=== PATIENT | female | born 1975 ===

== ENCOUNTER 2020-12-12 13:22 | Inpatient (IN) | payer BC ==
[2020-12-12 14:30] LABS: #Lymphocytes 0.8 thou/uL (1.20-3.40); #Monocytes 0.3 thou/uL (0.11-0.59); #Neutrophils 8.3 thou/uL (1.40-6.50); %Basophils 0.2 % (0.0-1.0); %Eosinophils 0.1 % (0.0-10.0); %Lymphocytes 8.4 % (21.0-51.0); %Monocytes 2.9 % (0.0-10.0); %Neutrophils 88.5 % (42.0-75.0); Hemoglobin 13.3 g/dL (12.0-16.0); Mean Corpuscular HGB CONC 33.3 g/dL (32.0-36.0); Mean Corpuscular Hemoglobin 29.8 pg (27.0-31.0); Mean Corpuscular Volume 89.4 fL (78.0-98.0); Mean Platelet Volume 6.7 fL (7.4-10.4); Platelet Count 383 thou/uL (130-400); RBC Distribution Width 12.1 % (11.5-14.5); Red Blood Cell (RBC) Count 4.48 mill/uL (4.20-5.40); White Blood Cell (WBC) Count 9.4 thou/uL (4.8-10.8)
[2020-12-12 15:01] LABS: ALT (SGPT) 49 U/L (8-55); AST (SGOT) 69 U/L (5-34); Albumin 3.6 g/dL (3.5-5.0); Alkaline Phosphatase 114 U/L (40-110); Anion Gap 14 mmol/L (10-20); BUN (Urea Nitrogen) 13 mg/dL (7.0-18.7); Bilirubin, Total 0.8 mg/dL (0.2-1.2); CK (CPK) 122 U/L (29-168); Calc. Creatinine Clearance 0 mL/min (70-130); Calcium 9.1 mg/dL (7.8-10.44); Carbon Dioxide 26 mmol/L (22-29); Chloride 104 mmol/L (98-107); Globulin 3.7 g/dL (2.4-3.5); Glucose 94 mg/dL (70-105); Potassium 3.1 mmol/L (3.5-5.1); Protein, Total 7.3 g/dL (6.0-8.3); Sodium 141 mmol/L (136-145)
[2020-12-12 15:42] LABS: Magnesium 1.8 mg/dL (1.6-2.6)
[2020-12-12 15:48] LABS: Phosphorus 1.8 mg/dL (2.3-4.7)
[2020-12-12 15:58] LABS: INR-International Normal Ratio 1.1; PTT 28.7 sec (22.9-36.1); Prothrombin Time 13.7 sec (12.0-14.7)
[2020-12-12 15:59] LABS: D-Dimer Test 1.64 *mcg/mL (0.27-0.43)
[2020-12-12] MEDS ORDERED: Potassium Phosphate 15 MMOL in Sodium Chloride 0.9% 250 ML 250 ML IVPB SCH (16:00)
[2020-12-12] MEDS ORDERED: Ondansetron ODT 4 MG TAB PO PRN (16:21)
[2020-12-12] MEDS ORDERED: Acetaminophen 650 MG Suppository PR PRN (16:21)
[2020-12-12] MEDS ORDERED: Ondansetron PF 4 MG/2 ML Vial IVP PRN (16:21)
[2020-12-12 18:15] VITALS: BMI 32.5
[2020-12-12] MEDS ORDERED: Enoxaparin Sodium 40 MG/0.4 ML SYRINGE SC SCH (18:45)
[2020-12-12] MEDS: PHOS-NAK 1 PKT PACK PO SCH ×2 (19:00→22:33)
[2020-12-12] MEDS: Guaifenesin DM 100-10/5 ML UDCUP PO PRN (19:01)
[2020-12-12] MEDS ORDERED: REMDESIVIR 200 MG in Sodium Chloride 0.9% 250 ML 210 ML IV SCH (21:00)
[2020-12-12] MEDS: Acetaminophen 325 MG TAB PO PRN (22:32)
[2020-12-12 23:09] LABS: Anion Gap 12 mmol/L (10-20); BUN (Urea Nitrogen) 9 mg/dL (7.0-18.7); Calc. Creatinine Clearance 133 mL/min (70-130); Calcium 8.3 mg/dL (7.8-10.44); Carbon Dioxide 27 mmol/L (22-29); Chloride 107 mmol/L (98-107); Glucose 107 mg/dL (70-105); Potassium 3.5 mmol/L (3.5-5.1); Sodium 142 mmol/L (136-145)
[2020-12-13] MEDS: Guaifenesin DM 100-10/5 ML UDCUP PO PRN ×2 (00:36→06:13)
[2020-12-13] MEDS: Acetaminophen 325 MG TAB PO PRN ×2 (06:15→20:59)
[2020-12-13 06:46] LABS: #Lymphocytes 0.9 thou/uL (1.20-3.40); #Monocytes 0.4 thou/uL (0.11-0.59); #Neutrophils 4.4 thou/uL (1.40-6.50); %Basophils 0.5 % (0.0-1.0); %Eosinophils 0.1 % (0.0-10.0); %Lymphocytes 15.8 % (21.0-51.0); %Monocytes 6.5 % (0.0-10.0); %Neutrophils 77.2 % (42.0-75.0); Hemoglobin 11.9 g/dL (12.0-16.0); Mean Corpuscular HGB CONC 33.6 g/dL (32.0-36.0); Mean Corpuscular Hemoglobin 30.5 pg (27.0-31.0); Mean Corpuscular Volume 90.8 fL (78.0-98.0); Mean Platelet Volume 6.7 fL (7.4-10.4); Platelet Count 354 thou/uL (130-400); RBC Distribution Width 12.2 % (11.5-14.5); Red Blood Cell (RBC) Count 3.91 mill/uL (4.20-5.40); White Blood Cell (WBC) Count 5.7 thou/uL (4.8-10.8)
[2020-12-13 07:10] LABS: Anion Gap 11 mmol/L (10-20); BUN (Urea Nitrogen) 7 mg/dL (7.0-18.7); Calc. Creatinine Clearance 138 mL/min (70-130); Calcium 8.2 mg/dL (7.8-10.44); Carbon Dioxide 28 mmol/L (22-29); Chloride 108 mmol/L (98-107); Glucose 89 mg/dL (70-105); Potassium 3.3 mmol/L (3.5-5.1); Sodium 144 mmol/L (136-145)
[2020-12-13] MEDS: Ascorbic Acid 500 mg Chewable Tablet PO SCH (08:08)
[2020-12-13] MEDS: Dexamethasone 4 MG TAB PO SCH (08:08)
[2020-12-13] MEDS: Zinc Sulfate 220 MG CAP PO SCH (08:09)
[2020-12-13] MEDS: Enoxaparin Sodium 40 MG/0.4 ML SYRINGE SC SCH (08:09)
[2020-12-13] MEDS ORDERED: hydrALAZINE 25 MG TAB PO PRN (09:24)
[2020-12-13] MEDS ORDERED: Potassium Chloride 20 MEQ TAB PO SCH (09:30)
[2020-12-13 10:23] LABS: Phosphorus 2.8 mg/dL (2.3-4.7)
[2020-12-13] MEDS ORDERED: clonazePAM 1 MG TAB PO PRN (20:27)
[2020-12-13] MEDS: REMDESIVIR 100 MG in Sodium Chloride 0.9% 250 ML 230 ML IV SCH (20:47)
[2020-12-14] MEDS: Levothyroxine Sodium 100 MCG TAB PO SCH (06:03)
[2020-12-14 06:34] LABS: #Lymphocytes 0.8 thou/uL (1.20-3.40); #Monocytes 0.5 thou/uL (0.11-0.59); #Neutrophils 4.2 thou/uL (1.40-6.50); %Basophils 0.3 % (0.0-1.0); %Eosinophils 0.2 % (0.0-10.0); %Monocytes 9.1 % (0.0-10.0); %Neutrophils 75.3 % (42.0-75.0); Mean Corpuscular Hemoglobin 29.8 pg (27.0-31.0); Mean Corpuscular Volume 90.4 fL (78.0-98.0); Mean Platelet Volume 6.6 fL (7.4-10.4); Platelet Count 423 thou/uL (130-400); Red Blood Cell (RBC) Count 4.35 mill/uL (4.20-5.40); White Blood Cell (WBC) Count 5.6 thou/uL (4.8-10.8)
[2020-12-14 06:53] LABS: ALT (SGPT) 121 U/L (8-55); AST (SGOT) 99 U/L (5-34); Albumin 3.4 g/dL (3.5-5.0); Alkaline Phosphatase 212 U/L (40-110); Anion Gap 13 mmol/L (10-20); BUN (Urea Nitrogen) 9 mg/dL (7.0-18.7); Bilirubin, Total 0.6 mg/dL (0.2-1.2); CRP (Inflammatory) 6.98 mg/dL (= or < 0.5); Calc. Creatinine Clearance 133 mL/min (70-130); Carbon Dioxide 27 mmol/L (22-29); Chloride 105 mmol/L (98-107); Globulin 3.1 g/dL (2.4-3.5); Glucose 130 mg/dL (70-105); Potassium 3.5 mmol/L (3.5-5.1); Protein, Total 6.5 g/dL (6.0-8.3); Sodium 141 mmol/L (136-145)
[2020-12-14] MEDS: Enoxaparin Sodium 40 MG/0.4 ML SYRINGE SC SCH (08:16)
[2020-12-14] MEDS: Dexamethasone 4 MG TAB PO SCH (08:16)
[2020-12-14] MEDS: Ascorbic Acid 500 mg Chewable Tablet PO SCH (08:19)
[2020-12-14] MEDS: Zinc Sulfate 220 MG CAP PO SCH (08:19)
[2020-12-14] MEDS: Escitalopram Oxalate 20 mg Tablet PO SCH (08:19)
[2020-12-14] MEDS ORDERED: Rosuvastatin 5 MG TAB PO SCH (09:00)
[2020-12-14] MEDS: REMDESIVIR 100 MG in Sodium Chloride 0.9% 250 ML 230 ML IV SCH (20:01)
[2020-12-15] MEDS: Melatonin 3 MG TAB PO PRN ×2 (00:24→20:18)
[2020-12-15] MEDS: Levothyroxine Sodium 100 MCG TAB PO SCH (05:43)
[2020-12-15 06:46] LABS: ALT (SGPT) 93 U/L (8-55); AST (SGOT) 53 U/L (5-34); Albumin 3.3 g/dL (3.5-5.0); Alkaline Phosphatase 201 U/L (40-110); Anion Gap 11 mmol/L (10-20); BUN (Urea Nitrogen) 11 mg/dL (7.0-18.7); Bilirubin, Total 0.6 mg/dL (0.2-1.2); CRP (Inflammatory) 2.98 mg/dL (= or < 0.5); Calc. Creatinine Clearance 131 mL/min (70-130); Calcium 8.8 mg/dL (7.8-10.44); Carbon Dioxide 26 mmol/L (22-29); Chloride 107 mmol/L (98-107); Glucose 123 mg/dL (70-105); Potassium 3.4 mmol/L (3.5-5.1); Protein, Total 6.3 g/dL (6.0-8.3); Sodium 141 mmol/L (136-145)
[2020-12-15] MEDS ORDERED: Potassium Chloride 20 MEQ TAB PO SCH (08:00)
[2020-12-15] MEDS: Ascorbic Acid 500 mg Chewable Tablet PO SCH (08:06)
[2020-12-15] MEDS: Zinc Sulfate 220 MG CAP PO SCH (08:06)
[2020-12-15] MEDS: Dexamethasone 4 MG TAB PO SCH (08:07)
[2020-12-15] MEDS: Enoxaparin Sodium 40 MG/0.4 ML SYRINGE SC SCH (08:08)
[2020-12-15] MEDS: Escitalopram Oxalate 20 mg Tablet PO SCH (08:08)
[2020-12-15] MEDS: REMDESIVIR 100 MG in Sodium Chloride 0.9% 250 ML 230 ML IV SCH (20:14)
[2020-12-16] MEDS: Levothyroxine Sodium 100 MCG TAB PO SCH (05:32)
[2020-12-16 06:57] LABS: ALT (SGPT) 73 U/L (8-55); AST (SGOT) 33 U/L (5-34); Albumin 3.3 g/dL (3.5-5.0); Alkaline Phosphatase 179 U/L (40-110); Anion Gap 10 mmol/L (10-20); BUN (Urea Nitrogen) 13 mg/dL (7.0-18.7); Bilirubin, Total 0.5 mg/dL (0.2-1.2); CRP (Inflammatory) 1.53 mg/dL (= or < 0.5); Calc. Creatinine Clearance 126 mL/min (70-130); Carbon Dioxide 27 mmol/L (22-29); Chloride 107 mmol/L (98-107); Globulin 2.9 g/dL (2.4-3.5); Glucose 134 mg/dL (70-105); Potassium 3.4 mmol/L (3.5-5.1); Protein, Total 6.2 g/dL (6.0-8.3); Sodium 141 mmol/L (136-145)
[2020-12-16] MEDS: Dexamethasone 4 MG TAB PO SCH (08:00)
[2020-12-16] MEDS: Escitalopram Oxalate 20 mg Tablet PO SCH (08:00)
[2020-12-16] MEDS: Enoxaparin Sodium 40 MG/0.4 ML SYRINGE SC SCH (08:00)
[2020-12-16] MEDS: Zinc Sulfate 220 MG CAP PO SCH (08:01)
[2020-12-16] MEDS: Ascorbic Acid 500 mg Chewable Tablet PO SCH (08:01)
[2020-12-16 08:47] LABS: Magnesium 1.9 mg/dL (1.6-2.6)
[2020-12-16] MEDS: Potassium Chloride 20 MEQ TAB PO SCH ×2 (10:58→20:07)
[2020-12-16] MEDS: REMDESIVIR 100 MG in Sodium Chloride 0.9% 250 ML 230 ML IV SCH (20:08)
[2020-12-16] MEDS: Acetaminophen 325 MG TAB PO PRN (21:09)
[2020-12-16] MEDS: Guaifenesin DM 100-10/5 ML UDCUP PO PRN (21:09)
[2020-12-17] MEDS: Levothyroxine Sodium 100 MCG TAB PO SCH (05:16)
[2020-12-17 06:56] LABS: ALT (SGPT) 71 U/L (8-55); AST (SGOT) 34 U/L (5-34); Albumin 3.4 g/dL (3.5-5.0); Alkaline Phosphatase 160 U/L (40-110); Anion Gap 11 mmol/L (10-20); BUN (Urea Nitrogen) 10 mg/dL (7.0-18.7); Bilirubin, Total 0.6 mg/dL (0.2-1.2); Calc. Creatinine Clearance 129 mL/min (70-130); Calcium 8.9 mg/dL (7.8-10.44); Carbon Dioxide 26 mmol/L (22-29); Chloride 107 mmol/L (98-107); Globulin 2.9 g/dL (2.4-3.5); Glucose 115 mg/dL (70-105); Potassium 4.1 mmol/L (3.5-5.1); Protein, Total 6.3 g/dL (6.0-8.3); Sodium 140 mmol/L (136-145)
[2020-12-17 08:37] VITALS: BP 152/91; TEMP 97.8
[2020-12-17] MEDS: Ascorbic Acid 500 mg Chewable Tablet PO SCH (08:42)
[2020-12-17] MEDS: Enoxaparin Sodium 40 MG/0.4 ML SYRINGE SC SCH (08:42)
[2020-12-17] MEDS: Escitalopram Oxalate 20 mg Tablet PO SCH (08:42)
[2020-12-17] MEDS: Zinc Sulfate 220 MG CAP PO SCH (08:43)
[2020-12-17] MEDS: Dexamethasone 4 MG TAB PO SCH (08:43)
== END 2020-12-17 17:16 | disposition home or self-care (01) | DRG 177 ==
LOC: ERS 13:22 → T4-A 15:51
PROVIDERS: ADMIT Internal Medicine; ATTEND Internal Medicine
PROC: XW033E5 Introduction of Remdesivir Anti-infective into Peripheral Vein, Percutaneous Approach, New Technology Group 5 (ICD-10-PCS; principal; 2020-12-12)
PROC: 8E0ZXY6 Isolation (ICD-10-PCS; 2020-12-12)
DX: U07.1 COVID-19 (principal); J12.82 Pneumonia due to coronavirus disease 2019; J96.01 Acute respiratory failure with hypoxia; F41.9 Anxiety disorder, unspecified; E78.5 Hyperlipidemia, unspecified; E83.39 Other disorders of phosphorus metabolism; E87.6 Hypokalemia; R74.01 Elevation of levels of liver transaminase levels; E78.00 Pure hypercholesterolemia, unspecified; Z79.890 Hormone replacement therapy; Z79.899 Other long term (current) drug therapy
CPT/HCPCS: 36415; 71045; 80048; 80053; 82550; 82728; 83615; 83735; 84100; 84484; 85025; 85379; 85610; 85730; 86140; 93005; 94760; J1650; J7050; J8540